=== PATIENT | female | born 1930 | race Caucasian/White ===

== ENCOUNTER 2016-03-19 13:29 | Inpatient (IN) | payer OTHER ==
[~2016-03-19] VITALS: Ht 160 cm; Wt 54.6 kg
[~2016-03-19 13:29] MED LIST: Ascorbic Acid,Ester- PO; CETACAINE TP; CILOSTAZOL50 MG PO; COUMADIN,JANTOVE5 MG PO; ENDOCET 5-3251 EACH PO; FEOSOL325 MG PO; LATANOPROST2.5 ML BOTH EYES; LIDODERM 5% P1 PATCH TP; LUMIGAN 0.50 DROP/2. BOTH EYES; Oyst-Cal D, Oscal W/ PO; POTASSIUM CHLO10 MEQ PO; Proventil,Ventolin H IH; REQUIP1 MG PO; ROBAXIN750 MG PO; SENOKOT S,PE1 TABLET PO; THEO-DUR,THEOC300 MG PO; Tylenol Regular Stre PO; Vitamin B-12 PO
[2016-03-19 14:38] LABS: HEMATOCRIT 25.8 % (36.0-46.0); MCH 39.1 PG (29.0-34.0); MCHC 34.1 G/DL (30.0-36.0); MCV 114.7 FL (83-99); RBC DIS.WIDTH-CV 15.1 % (11.8-14.6); RBC DIS.WIDTH-SD 59.8 % (39-53); RED BLOOD COUNT 2.25 M/uL (3.80-5.20); WHITE BLOOD COUNT 3.2 K/uL (4.1-10.2)
[2016-03-19 14:46] LABS: CHLORIDE 105 mEq/L (99-109); POTASSIUM 3.6 mEq/L (3.7-5.4); SODIUM 136 mEq/L (136-147)
[2016-03-19 14:48] LABS: GLUCOSE 96 mg/dL (70-99)
[2016-03-19 14:49] LABS: ANION GAP 6 MEQ/L (2-14)
[2016-03-19 14:50] LABS: TOTAL BILIRUBIN 1.3 mg/dL (0.0-1.0)
[2016-03-19 14:51] LABS: ALKALINE PHOSPHATASE 104 IU/L (3-129); EOSINOPHIL (%) 1.9 % (0-5); EOSINOPHIL COUNT 0.1 K/uL (0-0.3); LYMPHOCYTE COUNT 0.2 K/uL (1.0-2.8); MONOCYTE (%) 11.3 % (3-12); MONOCYTE COUNT 0.4 K/uL (0-0.8); NEUTROPHIL COUNT 2.5 K/uL (1.8-6.4)
[2016-03-19 14:52] LABS: GFR ESTIMATE (CALCULATED) > 59 mL/min/
[2016-03-19 14:53] LABS: UREA NITROGEN (BUN) 15 mg/dL (9-23)
[2016-03-19 15:16] LABS: ADD MIUA? YES; BILIRUBIN NEGATIVE; BLOOD MODERATE; COLOR DK YELLOW ((YELLOW)); GLUCOSE (STRIP) NEGATIVE; KETONES NEGATIVE; LEUKOCYTES MODERATE; NITRITE POSITIVE; PROTEIN (STRIP) NEGATIVE; SPECIFIC GRAVITY 1.016 (1.000-1.030); UROBILINOGEN 0.2 MG/DL (0.2-1.0)
[2016-03-19 15:35] LABS: BACTERIA 3+; CASTS NONE SEEN /LPF; CRYSTALS NONE SEEN; EPITHELIAL CELLS RARE; MUCUS NONE SEEN; UCUL ADDED? YES
[2016-03-19 15:37] LABS: HEMATOLOGY COMMENT 1 SMEAR COMPATIBLE; MEAN PLAT.VOLUME 10.4 uM^3 (9.5-12.4); PLAT.SUFFICIENCY DECREASED; PLATELET COUNT 36 K/uL (156-360); USER ID SS
[2016-03-19] MEDS ORDERED: VENTOLIN HFA18 GM IH (18:12)
[2016-03-19] MEDS ORDERED: VITAMIN D35000 UNIT PO (18:13)
[2016-03-19] MEDS ORDERED: TRAMADOL HCL50 MG PO (18:14)
[2016-03-19] MEDS ORDERED: VESICARE10 MG PO (18:14)
[2016-03-19] MEDS ORDERED: ZOLOFT100 MG PO (18:15)
[2016-03-19] MEDS ORDERED: CYANOCOBALAM1000 MCG PO (19:20)
[2016-03-19] MEDS ORDERED: MAGNESIUM250 MG PO (19:20)
[2016-03-19] MEDS ORDERED: VITAMIN B-6100 MG PO (19:21)
[2016-03-19] MEDS ORDERED: REQUIP1 MG PO (19:21)
[2016-03-19] MEDS ORDERED: TYLENOL EXTRA500 MG PO (19:23)
[2016-03-19 23:52] VITALS: BP 140/83
[2016-03-20 03:35] VITALS: BP 147/55
[2016-03-20 07:18] LABS: HEMATOCRIT 24.2 % (36.0-46.0); MCH 39.6 PG (29.0-34.0); MCHC 34.7 G/DL (30.0-36.0); MCV 114.2 FL (83-99); RBC DIS.WIDTH-CV 15.2 % (11.8-14.6); RBC DIS.WIDTH-SD 63.3 % (39-53); RED BLOOD COUNT 2.12 M/uL (3.80-5.20); WHITE BLOOD COUNT 2.3 K/uL (4.1-10.2)
[2016-03-20 07:49] LABS: ANION GAP 6 MEQ/L (2-14); CHLORIDE 105 MEQ/L (99-109); GFR ESTIMATE (CALCULATED) > 59 mL/min/; GLUCOSE 78 mg/dL (70-99); POTASSIUM 4.3 MEQ/L (3.7-5.4); SAMPLE HEMOLYSIS CHECK 0; SAMPLE ICTERIC CHECK 0; SAMPLE LIPEMIA CHECK 0; SODIUM 135 MEQ/L (136-147); UREA NITROGEN (BUN) 9 mg/dL (9-23)
[2016-03-20 08:16] LABS: EOSINOPHIL COUNT 0.1 K/uL (0-0.3); LYMPHOCYTE COUNT 0.3 K/uL (1.0-2.8); MONOCYTE (%) 11.5 % (3-12); MONOCYTE COUNT 0.3 K/uL (0-0.8); NEUTROPHIL (%) 71.3 % (45-76); NEUTROPHIL COUNT 1.6 K/uL (1.8-6.4)
[2016-03-20 08:31] VITALS: BP 140/50
[2016-03-20 08:31] LABS: MEAN PLAT.VOLUME 10.3 uM^3 (9.5-12.4); PLAT.SUFFICIENCY DECREASED; PLATELET COUNT 34 K/uL (156-360); USER ID SDF
[2016-03-20 15:38] VITALS: BP 143/56
[2016-03-20 19:45] VITALS: BP 120/55
[2016-03-20 23:24] VITALS: BP 125/87
[2016-03-21 03:21] VITALS: BP 131/63
[2016-03-21 07:25] VITALS: BP 116/53
[2016-03-21 07:34] LABS: ANION GAP 5 MEQ/L (2-14); CHLORIDE 98 MEQ/L (99-109); GFR ESTIMATE (CALCULATED) > 59 mL/min/; GLUCOSE 85 mg/dL (70-99); POTASSIUM 4.3 MEQ/L (3.7-5.4); SAMPLE HEMOLYSIS CHECK 0; SAMPLE ICTERIC CHECK 0; SAMPLE LIPEMIA CHECK 0; UREA NITROGEN (BUN) 11 mg/dL (9-23)
[2016-03-21 07:36] LABS: SODIUM 128 MEQ/L (136-147)
[2016-03-21 07:41] LABS: EOSINOPHIL (%) 3.8 % (0-5); EOSINOPHIL COUNT 0.1 K/uL (0-0.3); HEMATOCRIT 23.1 % (36.0-46.0); LYMPHOCYTE COUNT 0.2 K/uL (1.0-2.8); MCH 39.2 PG (29.0-34.0); MCHC 35.5 G/DL (30.0-36.0); MCV 110.5 FL (83-99); MONOCYTE (%) 12.2 % (3-12); MONOCYTE COUNT 0.3 K/uL (0-0.8); NEUTROPHIL (%) 74.8 % (45-76); RBC DIS.WIDTH-CV 14.3 % (11.8-14.6); RBC DIS.WIDTH-SD 57.5 % (39-53); RED BLOOD COUNT 2.09 M/uL (3.80-5.20); WHITE BLOOD COUNT 2.6 K/uL (4.1-10.2)
[2016-03-21 08:14] LABS: MEAN PLAT.VOLUME 10.3 uM^3 (9.5-12.4); PLAT.SUFFICIENCY DECREASED; PLATELET COUNT 36 K/uL (156-360); USER ID SDF
[2016-03-21 11:44] VITALS: BP 131/57
[2016-03-21 16:21] VITALS: BP 123/65
[2016-03-21 19:50] VITALS: BP 130/64
[2016-03-21 23:45] VITALS: BP 130/61
[2016-03-22 02:40] VITALS: BP 134/60
[2016-03-22 08:08] LABS: ANION GAP 7 MEQ/L (2-14); CHLORIDE 92 MEQ/L (99-109); GFR ESTIMATE (CALCULATED) > 59 mL/min/; GLUCOSE 87 mg/dL (70-99); POTASSIUM 4.1 MEQ/L (3.7-5.4); SAMPLE HEMOLYSIS CHECK 0; SAMPLE ICTERIC CHECK 0; SAMPLE LIPEMIA CHECK 0; SODIUM 123 MEQ/L (136-147); UREA NITROGEN (BUN) 8 mg/dL (9-23)
[2016-03-22 08:34] VITALS: BP 130/61
[2016-03-22 11:51] VITALS: BP 132/63
[2016-03-22] MEDS ORDERED: ZOLOFT50 MG PO (15:31)
[2016-03-22 16:53] VITALS: BP 130/64
[2016-03-22 20:10] VITALS: BP 131/60
[2016-03-23 00:27] VITALS: BP 145/61
[2016-03-23 03:16] VITALS: BP 155/64
[2016-03-23 07:26] VITALS: BP 128/58
[2016-03-23] MEDS ORDERED: FLECTOR 1.3%1 PATC1 TD (10:07)
[2016-03-23] MEDS ORDERED: BACTRIM,SEPT1 TABLET PO (10:07)
[2016-03-23] MEDS ORDERED: HYDROMORPHONE HC2 MG PO (10:07)
[2016-03-23 11:35] VITALS: BP 140/67
[2016-03-31] MEDS ORDERED: SODIUM CHLORIDE1 G1 PO (14:58)
[2016-03-31] MEDS ORDERED: K-DUR20 MEQ PO ×2 (14:58→14:59)
== END 2016-03-23 12:30 | DRG 690 ==
LOC: EME → EDBD 13:29 → 2EAST 22:02 → EDOF 22:02 → 2EAST 23:43
PROVIDERS: Emergency Medicine; Internal Medicine; Physician Assistant Medical
DX: N30.00 Acute cystitis without hematuria (principal); B96.20 Unspecified Escherichia coli [E. coli] as the cause of diseases classified elsewhere; D61.818 Other pancytopenia; M16.12 Unilateral primary osteoarthritis, left hip; R64 Cachexia; D46.9 Myelodysplastic syndrome, unspecified; E87.6 Hypokalemia; M48.06 Spinal stenosis, lumbar region; M54.16 Radiculopathy, lumbar region; J45.909 Unspecified asthma, uncomplicated; H40.9 Unspecified glaucoma; R29.6 Repeated falls; M17.12 Unilateral primary osteoarthritis, left knee; Z85.3 Personal history of malignant neoplasm of breast; Z85.828 Personal history of other malignant neoplasm of skin; Z90.10 Acquired absence of unspecified breast and nipple; Z66 Do not resuscitate
CPT/HCPCS: 71010; 73502; 73552; 80048; 80053; 81003; 83605; 85025; 87040; 87077; 87086; 87186; 93005; 99202; 99281; 99285; J0744; J2270; J2405; J3480; J7030

== ENCOUNTER 2016-05-16 12:42 | Emergency (ER) | payer OTHER ==
[~2016-05-16] VITALS: Ht 157.5 cm; Wt 54.2 kg
[~2016-05-16 12:42] MED LIST changes: +BACTRIM,SEPT1 TABLET PO; +CYANOCOBALAM1000 MCG PO; +FLECTOR 1.3%1 PATC1 TD; +HYDROMORPHONE HC2 MG PO; +K-DUR20 MEQ PO; +MAGNESIUM250 MG PO; +SODIUM CHLORIDE1 G1 PO; +TRAMADOL HCL50 MG PO; +TYLENOL EXTRA500 MG PO; +VENTOLIN HFA18 GM IH; +VESICARE10 MG PO; +VITAMIN B-6100 MG PO; +VITAMIN D35000 UNIT PO; +ZOLOFT100 MG PO; +ZOLOFT50 MG PO
[2016-05-16 15:05] LABS: EOSINOPHIL (%) 0.2 % (0-5); HEMATOCRIT 27.2 % (36.0-46.0); IMMATURE GRANULOCYTE (%) 0.2 % (0.0-0.7); IMMATURE GRANULOCYTE COUNT 0.1 K/uL; LYMPHOCYTE COUNT 0.3 K/uL (1.0-2.8); MCH 38.6 PG (29.0-34.0); MCHC 34.2 G/DL (30.0-36.0); MCV 112.9 FL (83-99); MONOCYTE (%) 9.8 % (3-12); MONOCYTE COUNT 0.4 K/uL (0-0.8); NEUTROPHIL (%) 83.7 % (45-76); NEUTROPHIL COUNT 3.6 K/uL (1.8-6.4); RBC DIS.WIDTH-SD 53.7 % (39-53); RED BLOOD COUNT 2.41 M/uL (3.80-5.20); WHITE BLOOD COUNT 4.3 K/uL (4.1-10.2)
[2016-05-16 15:16] LABS: MEAN PLAT.VOLUME 10.3 uM^3 (9.5-12.4); PLATELET COUNT 31 K/uL (156-360)
[2016-05-16 15:18] LABS: CHLORIDE 103 mEq/L (99-109); POTASSIUM 3.9 mEq/L (3.7-5.4); SODIUM 133 mEq/L (136-147)
[2016-05-16 15:20] LABS: GLUCOSE 93 mg/dL (70-99)
[2016-05-16 15:21] LABS: ANION GAP 6 MEQ/L (2-14)
[2016-05-16 15:24] LABS: GFR ESTIMATE (CALCULATED) > 59 mL/min/; UREA NITROGEN (BUN) 18 mg/dL (9-23)
[2016-05-16 16:19] LABS: ADD MIUA? YES; BILIRUBIN NEGATIVE; BLOOD LARGE; COLOR YELLOW ((YELLOW)); GLUCOSE (STRIP) NEGATIVE; KETONES NEGATIVE; LEUKOCYTES MODERATE; NITRITE POSITIVE; PROTEIN (STRIP) NEGATIVE; SPECIFIC GRAVITY 1.014 (1.000-1.030); UROBILINOGEN 0.2 MG/DL (0.2-1.0)
[2016-05-16 16:36] LABS: BACTERIA RARE /HPF; EPITHELIAL CELLS RARE /HPF; MUCUS TRACE /LPF; UCUL ADDED? NO; WHITE BLOOD CELLS 15-20 /HPF (0-5)
[2016-05-16] MEDS ORDERED: BACTRIM,SEPT1 TABLET PO (16:44)
[2016-05-16 17:10] VITALS: BP 116/59
[2016-05-17] MEDS ORDERED: VITAMIN B-6100 MG PO (14:21)
[2016-05-17] MEDS ORDERED: BACTRIM,SEPT1 TABLET PO (14:23)
[2016-06-01] MEDS ORDERED: THEOCHRON300 MG PO (14:09)
[2016-06-01] MEDS ORDERED: ROBITUSSIN DM118 ML PO (14:17)
== END 2016-05-16 17:21 ==
LOC: EME 12:42
PROVIDERS: Emergency Medicine
DX: N39.0 Urinary tract infection, site not specified (principal); D64.9 Anemia, unspecified; M13.852 Other specified arthritis, left hip; R05 Cough; R06.02 Shortness of breath; Z87.891 Personal history of nicotine dependence
CPT/HCPCS: 71010; 73502; 80048; 81003; 83605; 85025; 99281; 99285; J2270

== ENCOUNTER 2016-05-17 09:50 | Inpatient (IN) | payer OTHER ==
[~2016-05-17] VITALS: Ht 157.5 cm; Wt 51.2 kg
[2016-05-17 13:27] LABS: CHLORIDE 102 mEq/L (99-109); SODIUM 131 mEq/L (136-147)
[2016-05-17 13:29] LABS: GLUCOSE 91 mg/dL (70-99)
[2016-05-17 13:31] LABS: ANION GAP 7 MEQ/L (2-14)
[2016-05-17 13:33] LABS: GFR ESTIMATE (CALCULATED) > 59 mL/min/
[2016-05-17 13:34] LABS: UREA NITROGEN (BUN) 19 mg/dL (9-23)
[2016-05-17 13:58] LABS: EOSINOPHIL (%) 0 % (0-5); HEMATOCRIT 24.3 % (36.0-46.0); IMMATURE GRANULOCYTE (%) 0.5 % (0.0-0.7); INSTRUMENT ABS NEUTROPHIL CT 3.8 K/uL; LYMPHOCYTE COUNT 0.1 K/uL (1.0-2.8); MCH 38.4 PG (29.0-34.0); MCHC 34.2 G/DL (30.0-36.0); MCV 112.5 FL (83-99); MONOCYTE (%) 11.7 % (3-12); MONOCYTE COUNT 0.5 K/uL (0-0.8); NEUTROPHIL (%) 85.3 % (45-76); NEUTROPHIL COUNT 3.8 K/uL (1.8-6.4); RBC DIS.WIDTH-CV 13.4 % (11.8-14.6); RBC DIS.WIDTH-SD 55.9 % (39-53); RED BLOOD COUNT 2.16 M/uL (3.80-5.20); WHITE BLOOD COUNT 4.4 K/uL (4.1-10.2)
[2016-05-17] MEDS ORDERED: VITAMIN B-6100 MG PO (14:21)
[2016-05-17] MEDS ORDERED: BACTRIM,SEPT1 TABLET PO (14:23)
[2016-05-17 14:54] LABS: IMM.PLATELET FRACTION 6.5 (1-7); MEAN PLAT.VOLUME 10.7 uM^3 (9.5-12.4)
[2016-05-17 14:55] LABS: PLATELET COUNT 24 K/uL (156-360)
[2016-05-17 14:56] LABS: PLAT.SUFFICIENCY DECREASED
[2016-05-17 16:52] LABS: ANISOCYTOSIS 1+; EOSINOPHIL (%) 0.3 % (0-5); HEMATOCRIT 23.4 % (36.0-46.0); IMM.PLATELET FRACTION 6.9 (1-7); IMMATURE GRANULOCYTE (%) 0.6 % (0.0-0.7); INSTRUMENT ABS NEUTROPHIL CT 2.8 K/uL; LYMPHOCYTE COUNT 0.1 K/uL (1.0-2.8); MACROCYTES 1+; MCH 38.5 PG (29.0-34.0); MCHC 33.8 G/DL (30.0-36.0); MCV 114.1 FL (83-99); MEAN PLAT.VOLUME 12.5 uM^3 (9.5-12.4); MONOCYTE (%) 14.3 % (3-12); MONOCYTE COUNT 0.5 K/uL (0-0.8); NEUTROPHIL (%) 81.6 % (45-76); NEUTROPHIL COUNT 2.8 K/uL (1.8-6.4); OVALOCYTES 1+; RBC DIS.WIDTH-CV 13.6 % (11.8-14.6); RBC DIS.WIDTH-SD 56.4 % (39-53); RED BLOOD COUNT 2.05 M/uL (3.80-5.20); WHITE BLOOD COUNT 3.4 K/uL (4.1-10.2)
[2016-05-17 16:54] LABS: PLATELET COUNT 21 K/uL (156-360)
[2016-05-17 16:55] LABS: PLAT.SUFFICIENCY DECREASED
[2016-05-17 18:24] VITALS: BP 150/66
[2016-05-17 19:00] VITALS: BP 135/84
[2016-05-18] VITALS (7 sets, daily range): BP systolic 107–166; BP diastolic 52–82
[2016-05-18 08:53] LABS: HEMATOCRIT 25.9 % (36.0-46.0); IMM.PLATELET FRACTION 8.9 (1-7); MCH 39.5 PG (29.0-34.0); MCV 116.1 FL (83-99); MEAN PLAT.VOLUME 11.5 uM^3 (9.5-12.4); RBC DIS.WIDTH-CV 13.6 % (11.8-14.6); RBC DIS.WIDTH-SD 58.3 % (39-53); RED BLOOD COUNT 2.23 M/uL (3.80-5.20); WHITE BLOOD COUNT 2.5 K/uL (4.1-10.2)
[2016-05-18 09:01] LABS: ANION GAP 6 MEQ/L (2-14); CHLORIDE 102 MEQ/L (99-109); INTER. NORMALIZED RATIO 1.1; POTASSIUM 3.7 MEQ/L (3.7-5.4); PROTHROMBIN TIME 11.7 (9.2-11.2); PTT 35.5 (25-32); SAMPLE HEMOLYSIS CHECK 0; SAMPLE ICTERIC CHECK 0; SAMPLE LIPEMIA CHECK 0; SODIUM 133 MEQ/L (136-147)
[2016-05-18 09:07] LABS: GFR ESTIMATE (CALCULATED) > 59 mL/min/; GLUCOSE 71 mg/dL (70-99); UREA NITROGEN (BUN) 19 mg/dL (9-23)
[2016-05-18 09:40] LABS: PLATELET COUNT 24 K/uL (156-360)
[2016-05-19 04:02] VITALS: BP 129/53
[2016-05-19 07:51] VITALS: BP 143/56
[2016-05-19 16:25] VITALS: BP 131/56
[2016-05-20] VITALS (10 sets, daily range): BP systolic 111–182; BP diastolic 51–68
[2016-05-20 06:26] LABS: ANION GAP 6 MEQ/L (2-14); CHLORIDE 102 MEQ/L (99-109); GFR ESTIMATE (CALCULATED) > 59 mL/min/; GLUCOSE 79 mg/dL (70-99); HEMATOCRIT 21.1 % (36.0-46.0); MCH 38.3 PG (29.0-34.0); MCHC 32.7 G/DL (30.0-36.0); MCV 117.2 FL (83-99); RBC DIS.WIDTH-CV 12.9 % (11.8-14.6); RBC DIS.WIDTH-SD 54.2 % (39-53); SAMPLE HEMOLYSIS CHECK 0; SAMPLE ICTERIC CHECK 0; SAMPLE LIPEMIA CHECK 0; SODIUM 133 MEQ/L (136-147); UREA NITROGEN (BUN) 19 mg/dL (9-23); WHITE BLOOD COUNT 2.7 K/uL (4.1-10.2)
[2016-05-20 08:37] LABS: IMM.PLATELET FRACTION 14.6 (1-7)
[2016-05-20 08:40] LABS: PLATELET COUNT 20 K/uL (156-360)
[2016-05-20 11:22] LABS: ADD MIUA? YES; BILIRUBIN NEGATIVE; BLOOD SMALL; COLOR YELLOW ((YELLOW)); GLUCOSE (STRIP) 50; KETONES 5; LEUKOCYTES NEGATIVE; NITRITE POSITIVE; PROTEIN (STRIP) NEGATIVE; SPECIFIC GRAVITY 1.019 (1.000-1.030); UROBILINOGEN 0.2 MG/DL (0.2-1.0)
[2016-05-20 11:52] LABS: EOSINOPHIL (%) 0.7 % (0-5); HEMATOCRIT 20.8 % (36.0-46.0); IMMATURE GRANULOCYTE (%) 0.7 % (0.0-0.7); INSTRUMENT ABS NEUTROPHIL CT 2.3 K/uL; LYMPHOCYTE COUNT 0.1 K/uL (1.0-2.8); MCH 39.3 PG (29.0-34.0); MCHC 33.7 G/DL (30.0-36.0); MCV 116.9 FL (83-99); MONOCYTE COUNT 0.3 K/uL (0-0.8); NEUTROPHIL (%) 82.6 % (45-76); NEUTROPHIL COUNT 2.3 K/uL (1.8-6.4); RBC DIS.WIDTH-CV 12.9 % (11.8-14.6); RBC DIS.WIDTH-SD 54.8 % (39-53); RED BLOOD COUNT 1.78 M/uL (3.80-5.20); WHITE BLOOD COUNT 2.8 K/uL (4.1-10.2)
[2016-05-20 12:10] LABS: BACTERIA RARE /HPF; EPITHELIAL CELLS RARE /HPF; MUCUS TRACE /LPF; RED BLOOD CELLS TNTC /HPF (0-5); UCUL ADDED? NO
[2016-05-20 12:38] LABS: IMM.PLATELET FRACTION 21.3 (1-7); MEAN PLAT.VOLUME 12.1 uM^3 (9.5-12.4)
[2016-05-21 00:19] VITALS: BP 111/54
[2016-05-21 00:28] VITALS: BP 150/63
[2016-05-21 01:21] VITALS: BP 134/60
[2016-05-21 08:00] VITALS: BP 123/84
[2016-05-21 10:50] LABS: HEMATOCRIT 29.6 % (36.0-46.0); MCH 34.8 PG (29.0-34.0); MCHC 34.1 G/DL (30.0-36.0)
[2016-05-21 11:02] LABS: MCV 102.1 FL (83-99); WHITE BLOOD COUNT 3.8 K/uL (4.1-10.2)
[2016-05-21 11:29] LABS: EOSINOPHIL (%) 0.5 % (0-5); IMM.PLATELET FRACTION 13.3 (1-7); IMMATURE GRANULOCYTE (%) 1.1 % (0.0-0.7); INSTRUMENT ABS NEUTROPHIL CT 3.3 K/uL; LYMPHOCYTE COUNT 0.1 K/uL (1.0-2.8); MEAN PLAT.VOLUME 12.4 uM^3 (9.5-12.4); MONOCYTE (%) 8.4 % (3-12); MONOCYTE COUNT 0.3 K/uL (0-0.8); NEUTROPHIL (%) 87.4 % (45-76); NEUTROPHIL COUNT 3.3 K/uL (1.8-6.4); PLATELET CLUMPS PRESENT - PLATELET COUNTS APPEARS DECREASED
[2016-05-21 16:00] VITALS: BP 127/87
[2016-05-22 00:30] VITALS: BP 145/53
[2016-05-22 07:51] VITALS: BP 140/66
[2016-05-22 16:12] VITALS: BP 168/69
[2016-05-22 23:55] VITALS: BP 138/62
[2016-05-23 08:02] VITALS: BP 182/75
[2016-05-23 09:39] VITALS: BP 123/59
[2016-05-23] MEDS ORDERED: HYDROMORPHONE HC4 MG PO (12:21)
[2016-06-01] MEDS ORDERED: THEOCHRON300 MG PO (14:09)
[2016-06-01] MEDS ORDERED: ROBITUSSIN DM118 ML PO (14:17)
== END 2016-05-23 14:17 | DRG 809 ==
LOC: EME → EDBD 09:50 → EME 09:50 → EDOF 15:50 → 5WEST 15:50 → 3EAST 05-18 10:38
PROVIDERS: Emergency Medicine; Internal Medicine; Physician Assistant
PROC: 30233N1 Transfusion of Nonautologous Red Blood Cells into Peripheral Vein, Percutaneous Approach (ICD-10-PCS; principal; 2016-05-20)
DX: D61.818 Other pancytopenia (principal); N39.0 Urinary tract infection, site not specified; F03.91 Unspecified dementia, unspecified severity, with behavioral disturbance; E87.1 Hypo-osmolality and hyponatremia; M16.12 Unilateral primary osteoarthritis, left hip; G89.29 Other chronic pain; M25.552 Pain in left hip; L89.159 Pressure ulcer of sacral region, unspecified stage; L89.629 Pressure ulcer of left heel, unspecified stage; R32 Unspecified urinary incontinence; M54.16 Radiculopathy, lumbar region; M48.06 Spinal stenosis, lumbar region; J45.909 Unspecified asthma, uncomplicated; H40.9 Unspecified glaucoma; Z66 Do not resuscitate; Z51.5 Encounter for palliative care; Z85.3 Personal history of malignant neoplasm of breast; Z85.828 Personal history of other malignant neoplasm of skin; Z90.11 Acquired absence of right breast and nipple; Z92.21 Personal history of antineoplastic chemotherapy
CPT/HCPCS: 36415; 71010; 71020; 72131; 73502; 73700; 80048; 81003; 82728; 83540; 83605; 84466; 85025; 85025 91; 85027; 85610; 85730; 86850; 86900; 86901; 86920; 94799; 97530 GP; 99281; 99285; C9113; G0378; J1170; J1940; J2270; J2405; J7030; J7050; P9016